=== PATIENT | female | born 1960 | race Caucasian/White ===

== ENCOUNTER 2021-01-31 22:12 | Emergency (ER) | payer MEDICAID ==
[~2021-01-31] VITALS: Ht 154.9 cm; Wt 71.7 kg
[2021-01-31 23:05] VITALS: BP 107/68
[2021-01-31] MEDS ORDERED: diphenhydrAMINE HCL 50 MG/ML VIAL ONE (23:23)
[2021-01-31] MEDS ORDERED: diphenhydrAMINE HCL 50 MG/ML VIAL IM ONE (23:30)
== END 2021-01-31 23:57 | disposition home or self-care (01) ==
LOC: ER 22:12
DX: L29.9 Pruritus, unspecified (principal)
CPT/HCPCS: 96372; 99283; J1200

== ENCOUNTER 2023-12-21 18:38 | Emergency (ER) | payer MEDICAID ==
[~2023-12-21] VITALS: Ht 180.3 cm; Wt 77.1 kg
[2023-12-21 19:32] LABS: BASOPHILS # (AUTO) 0.1 K/uL (0.0-0.2); BASOPHILS % (AUTO) 0.5 % (0.0-2.0); EOSINOPHILS % (AUTO) 0.1 % (0.0-6.0); HEMATOCRIT 41 % (33-45); HEMOGLOBIN 13.9 g/dL (11.5-14.8); LYMPHOCYTES # (AUTO) 2.8 K/uL (0.8-4.8); LYMPHOCYTES % (AUTO) 23.2 % (20.0-44.0); MEAN CORPUSCULAR HEMOGLOBIN 30 PG (26.0-33.0); MEAN CORPUSCULAR HGB CONC 34 g/dl (31.0-36.0); MEAN CORPUSCULAR VOLUME 87 fL (82-100); MONOCYTES # (AUTO) 0.5 K/uL (0.1-1.30); MONOCYTES % (AUTO) 4.4 % (2.0-12.0); NEUTROPHILS # (AUTO) 8.6 K/uL (1.8-8.9); NEUTROPHILS % (AUTO) 71.8 % (43.0-81.0); PLATELET COUNT (AUTO) 265 K/uL (150-450); RED BLOOD CELL COUNT(AUTO) 4.72 MIL/uL (4.0-5.2); RED CELL DISTRIBUTION WIDTH 13.5 % (11.5-15.0)
[2023-12-21 19:43] LABS: CALCIUM, SERUM 8.8 mg/dL (8.5-10.1); CREATININE 0.7 mg/dL (0.6-1.3); POTASSIUM 3.7 mmol/L (3.5-5.1)
[2023-12-21 19:47] LABS: ALBUMIN 3.6 g/dL (3.4-5.0); BILIRUBIN,DIRECT 0.2 mg/dL (0.0-0.2); BILIRUBIN,TOTAL 0.4 mg/dL (0.2-1.0); TOTAL PROTEIN, SERUM 7.5 g/dL (6.4-8.2)
[2023-12-21 19:57] LABS: INR 1.02 (0.91-1.10); PROTHROMBIN TIME 10.8 SECS (9.2-11.1)
[2023-12-21 20:24] LABS: PARTIAL THROMBOPLASTIN TIME 26.2 SEC (24.3-34.3)
[2023-12-21] MEDS ORDERED: oxyCODONE/APAP (5/325 MG) 1 UDTAB TABLET ONE (20:28)
[2023-12-21] MEDS: oxyCODONE/APAP (5/325 MG) 1 UDTAB TABLET PO ONE (20:37)
[2023-12-21] MEDS ORDERED: KETOROLAC TROMETHAMINE INJ 30 MG/ML VIAL ONE (21:57)
[2023-12-21] MEDS: KETOROLAC TROMETHAMINE INJ 30 MG/ML VIAL IM ONE (22:02)
[2023-12-21] MEDS ORDERED: OXYC-128 PO (22:21)
[2023-12-21] MEDS ORDERED: IBUP-1490 PO (22:21)
[2023-12-22] MEDS ORDERED: oxyCODONE/APAP (5/325 MG) 1 UDTAB TABLET ONE (03:17)
[2023-12-22] MEDS: oxyCODONE/APAP (5/325 MG) 1 UDTAB TABLET PO ONE (03:19)
[2023-12-22 03:47] VITALS: BP 128/83; TEMP 97.9; O2SAT 97
== END 2023-12-22 03:47 | disposition home or self-care (01) ==
LOC: ER 18:41
DX: S52.502A Unspecified fracture of the lower end of left radius, initial encounter for closed fracture (principal); R51.9 Headache, unspecified; F10.129 Alcohol abuse with intoxication, unspecified; W01.0XXA Fall on same level from slipping, tripping and stumbling without subsequent striking against object, initial encounter; Y93.89 Activity, other specified; Y92.89 Other specified places as the place of occurrence of the external cause; Y99.8 Other external cause status; Y90.8 Blood alcohol level of 240 mg/100 ml or more
CPT/HCPCS: 29125; 36415; 70450; 72125; 73100; 73120; 80048; 80076; 80320; 85025; 85730; 96372; 99285; J1885; G0480

== ENCOUNTER 2024-10-13 20:49 | Emergency (ER) | payer MEDICARE, OTHER ==
[~2024-10-13] VITALS: Ht 177.8 cm; Wt 65.8 kg
[~2024-10-13 20:49] MED LIST: IBUP-1490 PO; OXYC-128 PO
[2024-10-13 21:38] LABS: BASOPHILS % (AUTO) 0.2 % (0.0-2.0); HEMATOCRIT 41 % (33-45); LYMPHOCYTES # (AUTO) 0.6 K/uL (0.8-4.8); LYMPHOCYTES % (AUTO) 7.1 % (20.0-44.0); MEAN CORPUSCULAR HEMOGLOBIN 30 PG (26.0-33.0); MEAN CORPUSCULAR HGB CONC 34 g/dl (31.0-36.0); MEAN CORPUSCULAR VOLUME 87 fL (82-100); MONOCYTES # (AUTO) 0.1 K/uL (0.1-1.30); MONOCYTES % (AUTO) 1.1 % (2.0-12.0); NEUTROPHILS # (AUTO) 7.8 K/uL (1.8-8.9); NEUTROPHILS % (AUTO) 91.6 % (43.0-81.0); PLATELET COUNT (AUTO) 253 K/uL (150-450); RED BLOOD CELL COUNT(AUTO) 4.71 MIL/uL (4.0-5.2); WHITE BLOOD COUNT (AUTO) 8.5 K/uL (4.3-11.0)
[2024-10-13 21:47] LABS: APPEARANCE,URINE CLEAR (CLEAR); BILIRUBIN,URINE NEGATIVE (NEGATIVE); BLOOD, URINE NEGATIVE Ery/uL (NEGATIVE); COLOR,URINE YELLOW (YELLOW); KETONES,URINE 3+ mg/dL (NEGATIVE); LEUKOCYTE ESTERASE ,URINE NEGATIVE (NEGATIVE); NITRITE, URINE NEGATIVE (NEGATIVE); PROTEIN,URINE TRACE mg/dl (NEGATIVE); UGLUCOSE NEGATIVE (NEGATIVE)
[2024-10-13 21:49] LABS: CREATININE 0.9 mg/dL (0.6-1.3); POTASSIUM 3.8 mmol/L (3.5-5.1)
[2024-10-13 21:54] LABS: ALBUMIN 4.3 g/dL (3.4-5.0); BILIRUBIN,DIRECT 0.2 mg/dL (0.0-0.2); BILIRUBIN,TOTAL 0.5 mg/dL (0.2-1.0); INR 1.01 (0.91-1.10); PARTIAL THROMBOPLASTIN TIME 22.8 SEC (24.3-34.3); PROTHROMBIN TIME 10.7 SECS (9.2-11.1); TOTAL PROTEIN, SERUM 8.1 g/dL (6.4-8.2)
[2024-10-13 21:57] LABS: BACTERIA,URINE Many /HPF (None Seen); SQUAMOUS EPITHELIAL CELL,UR Many /HPF (None Seen)
[2024-10-13 21:57] LABS: LACTIC ACID 1.8 mmol/L (0.4-2.0)
[2024-10-13 21:59] LABS: ADD URINE CULTURE YES
[2024-10-13] MEDS ORDERED: ONDA4TAB5 PO (22:54)
[2024-10-13] MEDS ORDERED: ONDANSETRON 4 MG TAB.RAPDIS ONE (23:07)
[2024-10-13] MEDS: ONDANSETRON 4 MG TAB.RAPDIS SL ONE (23:15)
[2024-10-13] MEDS: ONDANSETRON HCL/PF 4 MG/2 ML VIAL IVP ONE (23:16)
[2024-10-13] MEDS: IV NS 0.9% 1,000 ML BAG IV ONE (23:16)
[2024-10-13 23:17] VITALS: BP 136/88; TEMP 97.4; O2SAT 98
== END 2024-10-13 23:17 | disposition home or self-care (01) ==
LOC: ER 21:26
DX: R11.2 Nausea with vomiting, unspecified (principal); R10.9 Unspecified abdominal pain; Z79.899 Other long term (current) drug therapy
CPT/HCPCS: 99284; 74176; 85025; 80048; 87086; 83605; 83690; 80076; 81001; 36415; 85730; Q0162